=== PATIENT | female | born 1985 | race Caucasian/White ===

== ENCOUNTER 2020-07-02 23:08 | Emergency (ER) | payer MEDICAID ==
[~2020-07-02] VITALS: Ht 167.6 cm; Wt 68.0 kg
--- NOTE | 2020-07-02 23:15 | NUR ---
Patient brought to the ER by a friend. Patient has suffered a laceration on her left thumb. Patient came in with it wrapped in gauze and a hand towel, all completely saturated with blood. No other complaints voiced. No SOB or signs of distress.
[2020-07-02] MEDS ORDERED: TDAP DIPH,PERTUSS,TET VAC/PF 0.5 ML DISP.SYRIN IM ONE (23:30)
[2020-07-02] MEDS ORDERED: LIDOCAINE HCL 2% 20 ML VIAL IJ ONE (23:30)
[2020-07-02] MEDS ORDERED: OXYC-128 PO (23:44)
[2020-07-02] MEDS ORDERED: OXYCODONE/APAP 5-325 MG TABLET ONE (23:56)
[2020-07-03] MEDS ORDERED: OXYCODONE/APAP 5-325 MG TABLET PO ONE
--- NOTE | 2020-07-03 00:25 | NUR ---
Patient discharged to home in stable condition. Written and verbal after care instructions given. Patient verbalizes understanding of instructions. Stressed follow up or return to ER for worsening s/s. Patient't hands were cleaned, wound cleansed with betadine, and dressed with a simple bandage.
[2020-07-03 01:30] VITALS: BP 146/101
== END 2020-07-03 00:25 | disposition home or self-care (01) ==
LOC: ER 23:10
DX: S61.012A Laceration without foreign body of left thumb without damage to nail, initial encounter (principal); W26.0XXA Contact with knife, initial encounter; Y93.G9 Activity, other involving cooking and grilling; Y92.89 Other specified places as the place of occurrence of the external cause
CPT/HCPCS: 90715; A4217; A4663

== ENCOUNTER 2021-02-28 15:32 | Emergency (ER) | payer MEDICAID ==
[~2021-02-28] VITALS: Ht 167.6 cm; Wt 66.7 kg
[~2021-02-28 15:32] MED LIST: OXYC-128 PO
[2021-02-28] MEDS ORDERED: IV NORMAL SALINE 1000 ML BAG IV ONE (16:30)
[2021-02-28] MEDS ORDERED: LORAZEPAM 2 MG/1 ML VIAL IV ONE (16:30)
[2021-02-28] MEDS: levETIRAcetam IV 500 MG in IV DEXTROSE 5% 100 ML IV ONE (16:30)
[2021-02-28] MEDS ORDERED: CODE10LI PO ×2 (19:07→19:12)
--- NOTE | 2021-02-28 20:01 | NUR ---
Patient discharged to home in stable condition. Written and verbal after care instructions given. Patient verbalizes understanding of instructions. Stressed follow up or return to ER for worsening s/s.
[2021-02-28 20:03] VITALS: BP 122/64
== END 2021-02-28 20:03 | disposition home or self-care (01) ==
LOC: ER 15:35
DX: J02.9 Acute pharyngitis, unspecified (principal); F17.290 Nicotine dependence, other tobacco product, uncomplicated; Z71.6 Tobacco abuse counseling; Z20.822 Contact with and (suspected) exposure to COVID-19; Z79.899 Other long term (current) drug therapy
CPT/HCPCS: 71045; A4663